=== PATIENT | male | born 1970 | race Caucasian/White ===

== ENCOUNTER 2020-04-07 19:19 | Emergency (ER) | payer SELFPAY ==
[2020-04-07 19:27] VITALS: BMI 29.8
[2020-04-07] MEDS ORDERED: DIPHTH,PERTUSS(ACELL),TET 0.5 ML DISP.SYRIN IM ONE ×2 (20:01→20:16)
[2020-04-07] MEDS ORDERED: CEPHALEXIN MONOHYDRATE 500 MG CAPSULE (UD) PO ONE (20:02)
[2020-04-07] MEDS ORDERED: CEPHALEXIN MONOHYDRATE 500 MG CAPSULE (UD) ONE (20:16)
[2020-04-07] MEDS ORDERED: LIDOCAINE 1%/EPI 1:100000 (50 ML MULTI DOSE VIAL) ONE (20:18)
[2020-04-07 22:11] VITALS: BP 132/84; PULSE 81; TEMP 97.8
== END 2020-04-07 23:56 | disposition home or self-care (01) ==
LOC: JERFT 19:19 → JER 19:19
PROC: 0HQJXZZ Repair Left Upper Leg Skin, External Approach (ICD-10-PCS; principal; 2020-04-07)
PROC: 3E0234Z Introduction of Serum, Toxoid and Vaccine into Muscle, Percutaneous Approach (ICD-10-PCS; 2020-04-07)
DX: S71.112A Laceration without foreign body, left thigh, initial encounter (principal)
CPT/HCPCS: 90715; 99285-25

== ENCOUNTER 2020-04-19 10:58 | Emergency (ER) | payer SELFPAY ==
[2020-04-19 11:38] VITALS: BP 160/81; PULSE 75; TEMP 98.1; BMI 29.8
== END 2020-04-19 11:58 | disposition home or self-care (01) ==
LOC: JERFT 10:58
DX: Z48.02 Encounter for removal of sutures (principal)
CPT/HCPCS: 99281-25

== ENCOUNTER 2021-06-22 10:49 | Emergency (ER) | payer OTHER ==
[2021-06-22 10:56] VITALS: BP 185/84; PULSE 91; TEMP 98; BMI 28.2
[2021-06-22] MEDS ORDERED: IBUPROFEN 600 MG TABLET (FP) PO ONE (11:21)
[2021-06-22] MEDS ORDERED: AMOXICILLIN 500 MG CAPSULE (FP) PO ONE (11:21)
== END 2021-06-22 11:45 | disposition home or self-care (01) ==
LOC: JER 10:49 → JERFT 10:49
DX: H66.91 Otitis media, unspecified, right ear (principal)
CPT/HCPCS: 99283-25

== ENCOUNTER 2021-12-20 08:34 | Emergency (ER) | payer OTHER ==
[2021-12-20 08:53] VITALS: BP 161/83; PULSE 103; RESP 18; TEMP 98.3; BMI 31.1
== END 2021-12-20 10:23 | disposition home or self-care (01) ==
LOC: JER 08:34
DX: L03.116 Cellulitis of left lower limb (principal)
CPT/HCPCS: 99281-25

== ENCOUNTER 2021-12-29 21:26 | Emergency (ER) | payer OTHER ==
[2021-12-29 21:32] VITALS: RESP 18; TEMP 97.8; BMI 32.3
[2021-12-29 23:29] VITALS: BP 168/72; PULSE 81
== END 2021-12-29 23:29 | disposition home or self-care (01) ==
LOC: JERFT 21:26
DX: M79.672 Pain in left foot (principal)
CPT/HCPCS: 73630-TC-LT; 82962; 99284-25